=== PATIENT | male | born 1990 | race Caucasian/White ===

== ENCOUNTER 2017-07-06 07:42 | Emergency (ER) | payer BC, OTHER ==
[2017-07-06 08:18] LABS: Absolute Lymphocytes (CBC) 2.3 K/uL (0.7-4.9); Absolute Monocytes 0.5 K/uL (0.1-1.3); Basophils % 0.7 % (0-1.3); Eosinophils % 1.1 % (0-4.4); Hematocrit 47.5 % (39.6-49.0); Lymphocytes % 28.6 % (15.3-44.8); MCH 30.3 pg (27.0-35.0); MCV 87.3 fL (80-100); MPV 7.4 fL (7.6-11.3); Monocytes % 6.8 % (3.3-12.3); RBC Red Blood Cell Count 5.44 M/uL (4.33-5.43)
[2017-07-06 08:28] LABS: BUN Blood Urea Nitrogen 10 mg/dL (6-20); Bicarbonate 26 mEq/L (21-31); Glucose Level 99 mg/dL (65-120); Potassium 3.9 mEq/L (3.6-5.0); Sodium Level 137 mEq/L (135-145)
--- NOTE | 2017-07-06 08:52 | RAD REPORT ---
EXAM DESCRIPTION: Daniela Andrade (2 Views)07/06/2017 8:08 am CLINICAL HISTORY: Chest pain COMPARISON: None FINDINGS: The lungs appear clear of acute infiltrate. The heart is normal size IMPRESSION: No acute abnormalities displayed
--- NOTE | 2017-07-06 09:09 | ER ---
Nurse's Notes [facility] Name: Brandon Ford Age: 27 yrs Sex: Male : 1990 Arrival Date: 07/06/2017 Time: 07:44 Bed 5 Private MD: Diagnosis: Chest pain, unspecified Presentation: 07/06 07:50 Presenting complaint: Patient states: Chest pain under L breast that began this ss morning. Pt states, "It feels like a pulled muscle." Denies injury, shortness of breath, cough/ fever. Transition of care: patient was not received from another setting of care. Onset of symptoms was July 06, 2017. Care prior to arrival: None. 07:50 Method Of Arrival: Ambulatory ss 07:50 Acuity: CLIFFORD 3 ss Historical: - Allergies: 07:51 No Known Allergies; ss - Home Meds: 07:51 None [Active]; ss - PMHx: 07:51 None; ss - PSHx: 07:51 None; ss - Immunization history:: Adult Immunizations up to date. - Social history:: Smoking status: Patient uses tobacco products, smokes one-half pack cigarettes per day. - Family history:: not pertinent. - Hospitalizations: : No recent hospitalization is reported. Screenin:17 Abuse screen: Denies threats or abuse. Denies injuries from another. Nutritional ph screening: No deficits noted. Tuberculosis screening: No symptoms or risk factors identified. Fall Risk None identified. Assessment: 08:00 General: Appears in no apparent distress. comfortable, well groomed, Behavior is calm, ph cooperative, appropriate for age, Denies fever, feeling ill. Pain: Complains of pain in left breast Pain radiates to left supraclavicular area, left clavicle and anterior aspect of left upper chest Pain currently is 3 out of 10 on a pain scale. Quality of pain is described as squeezing, Pain began suddenly. Neuro: Level of Consciousness is awake, alert, obeys commands, Oriented to person, place, time, situation. Cardiovascular: Reports chest pain, shortness of breath, Denies diaphoresis, nausea, palpitations, vomiting, Capillary refill < 3 seconds in bilateral fingers Patient's skin is warm and dry. Respiratory: Airway is patent Respiratory effort is even, unlabored, Breath sounds are clear bilaterally. Derm: Skin is intact, is healthy with good turgor, Skin is pink, warm \\T\\ dry. Musculoskeletal: Circulation, motion, and sensation intact. Range of motion: intact in all extremities. 09:28 Reassessment: Patient appears in no apparent distress at this time. Patient and/or ph family updated on plan of care and expected duration. Pain level reassessed. Patient is alert, oriented x 3, equal unlabored respirations, skin warm/dry/pink. Pt discharged home with SO. Vital Signs: 07:51 BP 133 / 85; Pulse 61; Resp 16; Pulse Ox 96% on R/A; Weight 140.61 kg; Height 6 ft. 0 ss in. (182.88 cm); Pain 4/10; 09:29 BP 126 / 84; Pulse 62; Resp 18; Temp 97.9; Pulse Ox 99% on R/A; ph 07:51 Body Mass Index 42.04 (140.61 kg, 182.88 cm) ED Course: 07:44 Patient arrived in ED. as 07:44 Billy Siegel MD is Attending Physician. rn 07:50 Triage completed. ss 07:51 Arm band placed on right wrist. ss 07:56 Jahaira Solitario, LUANNE is Primary Nurse. ph 08:00 No provider procedures requiring assistance completed. Inserted saline lock: 20 gauge ph in right antecubital area, using aseptic technique. Blood collected. Patient maintains SpO2 saturation greater than 95% on room air. 08:08 XRAY Chest Pa And Lat (2 Views) In Process Unspecified. EDMS 08:18 Patient has correct armband on for positive identification. Placed in gown. Bed in low ph position. Call light in reach. Side rails up X 1. patient monitor on. Pulse ox on. NIBP on. Warm blanket given. 08:22 EKG done, by ED staff, reviewed by Billy Siegel MD. ms 09:29 IV discontinued, intact, bleeding controlled, No redness/swelling at site. Pressure ph dressing applied. Administered Medications: No medications were administered Outcome: 09:08 Discharge ordered by . rn 09:29 Discharged to home ambulatory. ph 09:29 Condition: good 09:29 Discharge instructions given to patient, Instructed on discharge instructions, follow up and referral plans. Demonstrated understanding of instructions, follow-up care. 09:30 Patient left the ED. ph Signatures: Dispatcher [employer] Deidra Doyle Maria ms Nieto, Roman, MD MD rn [facility] HospitalRegina lopez RN RN ss Jahaira Solitario RN RN ph
--- NOTE | 2017-07-06 09:10 | EDPHYS ---
Physician Documentation [facility] Name: Brandon Ford Age: 27 yrs Sex: Male : 1990 Arrival Date: 07/06/2017 Time: 07:44 Bed 5 Private MD: ED Physician Billy Siegel HPI: 07/06 07:58 This 27 yrs old Male presents to ER via Ambulatory with complaints of Chest rn Pain. 07:58 The patient or guardian reports chest pain that is located primarily in the anterior rn chest wall, left. The pain radiates to the left shoulder. Associated signs and symptoms: Pertinent negatives: abdominal pain, cough, diaphoresis, dizziness, headache, lower extremity pain, lower extremity swelling, lightheadedness, nausea, near syncope, palpitations, recent travel, shortness of breath, syncope, vomiting. The chest pain is described as sharp. Duration: The patient or guardian reports multiple episodes, that are intermittent. Modifying factors: The symptoms are alleviated by nothing. the symptoms are aggravated by deep breath, movement, palpation of area. Severity of pain: At its worst the pain was mild in the emergency department the pain is unchanged. The patient has not experienced similar symptoms in the past. Reports driving to work, felt left sided chest pain, radiates to left shoulder, smokes half a pack per day, no fever/cough. No family hx of early/sudden cardiac . . Historical: - Allergies: 07:51 No Known Allergies; ss - Home Meds: 07:51 None [Active]; ss - PMHx: 07:51 None; ss - PSHx: 07:51 None; ss - Immunization history:: Adult Immunizations up to date. - Social history:: Smoking status: Patient uses tobacco products, smokes one-half pack cigarettes per day. - Family history:: not pertinent. - Hospitalizations: : No recent hospitalization is reported. ROS: 07:58 Constitutional: Negative for fever, chills, and weight loss, Eyes: Negative for injury, rn pain, redness, and discharge, Neck: Negative for injury, pain, and swelling, Cardiovascular: Negative for palpitations, and edema Respiratory: Negative for shortness of breath, cough, wheezing Abdomen/GI: Negative for abdominal pain, nausea, vomiting, diarrhea, and constipation, Back: Negative for injury and pain, MS/Extremity: Negative for injury and deformity, Skin: Negative for injury, rash, and discoloration, Neuro: Negative for headache, weakness, numbness, tingling, and seizure. Exam: 07:58 Constitutional: This is a well developed, well nourished patient who is awake, alert, rn and in no acute distress. Head/Face: Normocephalic, atraumatic. Eyes: Pupils equal round and reactive to light, extra-ocular motions intact. Lids and lashes normal. Conjunctiva and sclera are non-icteric and not injected. Cornea within normal limits. Periorbital areas with no swelling, redness, or edema. Neck: Trachea midline, no thyromegaly or masses palpated, and no cervical lymphadenopathy. Supple, full range of motion without nuchal rigidity, or vertebral point tenderness. No Meningismus. Cardiovascular: Regular rate and rhythm with a normal S1 and S2. No gallops, murmurs, or rubs. Normal PMI, no JVD. No pulse deficits. Respiratory: Lungs have equal breath sounds bilaterally, clear to auscultation and percussion. No rales, rhonchi or wheezes noted. No increased work of breathing, no retractions or nasal flaring. Abdomen/GI: Soft, non-tender, with normal bowel sounds. No distension or tympany. No guarding or rebound. No evidence of tenderness throughout. MS/ Extremity: Pulses equal, no cyanosis. Neurovascular intact. Full, normal range of motion. Equal circumference. Neuro: Awake and alert, GCS 15, oriented to person, place, time, and situation. Cranial nerves II-XII grossly intact. Motor strength 5/5 in all extremities. Sensory grossly intact. Cerebellar exam normal. Normal gait. 08:20 ECG was reviewed by the Attending Physician. rn Vital Signs: 07:51 BP 133 / 85; Pulse 61; Resp 16; Pulse Ox 96% on R/A; Weight 140.61 kg; Height 6 ft. 0 ss in. (182.88 cm); Pain 4/10; 09:29 BP 126 / 84; Pulse 62; Resp 18; Temp 97.9; Pulse Ox 99% on R/A; ph 07:51 Body Mass Index 42.04 (140.61 kg, 182.88 cm) ss MDM: 07:44 Patient medically screened. rn 09:06 Differential diagnosis: acute pericarditis, anxiety, costochondritis, pericarditis, rn pneumothorax. Data reviewed: vital signs, nurses notes, lab test result(s), EKG, radiologic studies, plain films, and as a result, I will discharge patient. Counseling: I had a detailed discussion with the patient and/or guardian regarding: the historical points, exam findings, and any diagnostic results supporting the discharge/admit diagnosis, lab results, radiology results, the need for outpatient follow up, to return to the emergency department if symptoms worsen or persist or if there are any questions or concerns that arise at home. Special discussion: Based on the patient's history, exam, and Dx evaluation, there is no indication for emergent intervention or inpatient Tx. It is understood by the patient/guardian that if the Sx's persist or worsen they need to return immediately for re-evaluation. I discussed with the patient/guardian in detail that at this point there is no indication for admission to the hospital. It is understood, however, that if the symptoms persist or worsen the patient needs to return immediately for re-evaluation. 07/06 07:51 Order name: CBC with Diff; Complete Time: 08:45 rn 07/06 07:51 Order name: Basic Metabolic Panel; Complete Time: 08:45 rn 07/06 07:51 Order name: Troponin (emerg Dept Use Only); Complete Time: 08:45 rn 07/06 07:51 Order name: EKG; Complete Time: 07:52 rn 07/06 07:51 Order name: D-Dimer; Complete Time: 09:03 rn 07/06 07:51 Order name: XRAY Chest Pa And Lat (2 Views); Complete Time: 09:03 rn 07/06 07:51 Order name: IV Start; Complete Time: 08:14 rn 07/06 07:51 Order name: EKG - Nurse/Tech; Complete Time: 08:18 rn EC:20 Rate is 63 beats/min. Rhythm is regular. QRS [place] is Normal. [place] interval is normal. QRS rn interval is normal. QT interval is normal. No Q waves. T waves are Normal. No ST changes noted. Clinical impression: Normal ECG. Interpreted by me. Administered Medications: No medications were administered Disposition: 07/06/17 09:08 Discharged to Home. Impression: Chest pain, unspecified. - Condition is Stable. - Discharge Instructions: Nonspecific Chest Pain, Chest Wall Pain. - Medication Reconciliation Form, Thank You Letter, Antibiotic Education, Prescription Opioid Use, Work release form form. - Follow up: Private Physician; When: As needed; Reason: Recheck today's complaints, Re-evaluation by your physician. - Problem is new. - Symptoms have improved. Signatures: Dispatcher [employer] EDBilly Palma MD MD rn Smirch, Shelby, RN RN ss Hall, Patricia, RN RN ph
--- NOTE | 2017-07-07 12:57 | EKG ---
Test Date: 2017-07-06 Test Time: 08:18:25 Glue Clamp Operator: MEASUREMENT RESULTS: Intervals: Rate: 63 VT: 134 QRSD: 86 QT: 390 QTc: 399 [place]: P: 18 VT: 134 QRS: 4 T: 16 INTERPRETIVE STATEMENTS: Normal sinus rhythm with sinus arrhythmia Normal ECG No previous ECG available for comparison Electronically Signed On 07-07-17 12:56:27 CDT by Angel Fontenot
== END 2017-07-06 09:30 | disposition home or self-care (01) ==
LOC: ER 07:42
DX: R07.9 Chest pain, unspecified (principal); F17.210 Nicotine dependence, cigarettes, uncomplicated
CPT/HCPCS: 36415; 71046; 80048; 84484; 85025; 85379; 93005; 99285